=== PATIENT | male | born 1955 | race Caucasian/White ===

== ENCOUNTER 2019-09-30 10:10 | Inpatient (IN) | payer BC ==
[~2019-09-30] VITALS: Ht 177.8 cm; Wt 90.6 kg
[2019-09-30] MEDS ORDERED: HYDROmorphone 1 MG/ML, 1ML INJ ONE ×3 (10:48→13:18)
[2019-09-30] MEDS ORDERED: ONDANSETRON 2MG/ML, 2ML ONE (10:48)
[2019-09-30] MEDS ORDERED: KETOROLAC 30 MG/1 ML ONE (10:48)
[2019-09-30] MEDS: HYDROmorphone 2 MG/ML, 1ML IVPush PRN ×2 (10:53→11:45)
--- NOTE | 2019-09-30 10:54 | NUR ---
meds per jun to ct. as
[2019-09-30] MEDS ORDERED: SODIUM CHLORIDE FLUSH 10ML SYR IVF ONE (11:00)
[2019-09-30] MEDS ORDERED: KETOROLAC 30 MG/1 ML IVPush ONE (11:00)
[2019-09-30] MEDS ORDERED: PLEASE ENTER ALLERGIES MC SCH (11:00)
[2019-09-30] MEDS ORDERED: ONDANSETRON 2MG/ML, 2ML IVPush ONE (11:00)
--- NOTE | 2019-09-30 11:19 | NUR ---
back from ct, pain much relieved, pt calm, cooperative now. vss as charted. awaiting ct. as
[2019-09-30 11:28] LABS: BASOPHILS # (AUTO) 0.06 x10^3/uL (0-0.1); BASOPHILS % (AUTO) 1 % (0-1); EOSINOPHILS # (AUTO) 0.04 x10^3/uL (0-0.4); EOSINOPHILS % (AUTO) 0 % (1-7); LYMPHOCYTES # (AUTO) 1.89 x10^3/uL (1-3.4); LYMPHOCYTES % (AUTO) 16 % (22-44); MD NO; MEAN CORPUSCULAR HEMOGLOBIN 32.6 pg (27.5-34.5); MEAN CORPUSCULAR HGB CONC 33.6 g/dL (33.2-36.2); MEAN CORPUSCULAR VOLUME 96.9 fL (81-97); MEAN PLATELET VOLUME 9.1 fL (7.4-10.4); MONOCYTES # (AUTO) 0.76 x10^3/uL (0.2-0.8); MONOCYTES % (AUTO) 7 % (2-9); NEUTROPHILS # (AUTO) 8.89 x10^3/uL (1.8-6.8); NEUTROPHILS % (AUTO) 76 % (42-75); PLATELET COUNT 268 x10^3/uL (130-400); RED BLOOD COUNT 4.95 x10^6/uL (4.38-5.82); RED CELL DISTRIBUTION WIDTH 13.3 % (9.4-14.8)
[2019-09-30 11:42] LABS: ALBUMIN 3.8 g/dL (3.4-5.0); ANION GAP 9 mmol/L (5-15); CALCIUM 8.6 mg/dL (8.5-10.1); CHLORIDE 109 mmol/L (98-107)
[2019-09-30 11:46] LABS: ALANINE AMINOTRANSFERASE 69 U/L (12-78); ALKALINE PHOSPHATASE 61 U/L (45-117); BILIRUBIN,TOTAL 0.6 mg/dL (0.2-1.0); CREATININE 1.19 mg/dL (0.7-1.3); TOTAL PROTEIN 7.4 g/dL (6.4-8.2)
--- NOTE | 2019-09-30 11:46 | NUR ---
law at bedside, 2nd dose dilaudid, still need ua, plan for bladder scan, pt very vocal about pain. as
--- NOTE | 2019-09-30 12:03 | NUR ---
oob for ua attempt. as
--- NOTE | 2019-09-30 12:24 | NUR ---
bldr scan 69 plan for mini cath law at bedside as
[2019-09-30] MEDS ORDERED: TAMSULOSIN 0.4 MG CAP.ER.24H PO ONE ×2 (12:30→13:30)
[2019-09-30] MEDS ORDERED: OXYcodone/APAP 5/325MG TABLET PO ONE (12:30)
--- NOTE | 2019-09-30 12:31 | NUR ---
LAW IN ROOM TO SPEAK W/ PT RE POC.
[2019-09-30] MEDS ORDERED: TAMSULOSIN 0.4 MG CAP.ER.24H ONE (12:43)
[2019-09-30] MEDS ORDERED: OXYcodone/APAP 5/325MG TABLET ONE (12:43)
[2019-09-30 12:46] LABS: MICROSCOPIC INDICATED
--- NOTE | 2019-09-30 12:53 | NUR ---
PT ABLE TO VOID, UA WLAKED TO LAB.
--- NOTE | 2019-09-30 13:16 | NUR ---
vomited, incr pain. tbadm, agrees. plan more meds. as
[2019-09-30] MEDS ORDERED: PROMETHAZINE 25 MG/ML, 1ML ONE (13:18)
[2019-09-30] MEDS ORDERED: PROMETHAZINE 25 MG/ML, 1ML IM ONE (13:30)
[2019-09-30] MEDS ORDERED: HYDROmorphone 2 MG/ML, 1ML IVPush PRN (13:30)
--- NOTE | 2019-09-30 14:07 | NUR ---
report to opal can. as
[2019-09-30 14:29] VITALS: BP 174/91
[2019-09-30] MEDS ORDERED: ONDANSETRON 2MG/ML, 2ML IVPush PRN ×2 (15:30→18:30)
[2019-09-30] MEDS: SODIUM CHLORIDE 0.9% 1,000 ML IV SCH (15:35)
[2019-09-30] MEDS: morphine SULFATE 10 MG/ML, 1ML IVPush PRN ×2 (15:36→23:35)
[2019-09-30] MEDS ORDERED: DOCUSATE 100 MG CAPSULE PO PRN (18:30)
[2019-09-30] MEDS ORDERED: BISACODYL 10 MG SUPP PR PRN (18:30)
[2019-09-30] MEDS ORDERED: POLYETHYLENE GLYCOL 17 GM PACKET PO PRN (18:30)
[2019-09-30] MEDS ORDERED: ACETAMINOPHEN 325 MG TABLET PO PRN (18:30)
[2019-09-30] MEDS ORDERED: LABETALOL 5MG/ML, 20ML IVPush PRN (18:30)
[2019-09-30] MEDS: KETOROLAC 30 MG/1 ML IVPush SCH (18:42)
[2019-09-30 20:13] VITALS: BP 131/79
[2019-09-30] MEDS ORDERED: LORA10TA75 PO (22:13)
[2019-09-30] MEDS ORDERED: LOSA100T14 PO (22:13)
[2019-10-01] MEDS: KETOROLAC 30 MG/1 ML IVPush SCH ×4 (01:33→19:08)
[2019-10-01 02:30] VITALS: BP 147/85
[2019-10-01] MEDS: SODIUM CHLORIDE 0.9% 1,000 ML IV SCH ×2 (04:56→17:20)
[2019-10-01 06:14] LABS: ANION GAP 6 mmol/L (5-15); CALCIUM 7.4 mg/dL (8.5-10.1); CHLORIDE 110 mmol/L (98-107)
[2019-10-01 06:20] LABS: BASOPHILS # (AUTO) 0.03 x10^3/uL (0-0.1); BASOPHILS % (AUTO) 0 % (0-1); EOSINOPHILS # (AUTO) 0.03 x10^3/uL (0-0.4); EOSINOPHILS % (AUTO) 0 % (1-7); LYMPHOCYTES # (AUTO) 1.27 x10^3/uL (1-3.4); LYMPHOCYTES % (AUTO) 14 % (22-44); MD NO; MEAN CORPUSCULAR HGB CONC 33.9 g/dL (33.2-36.2); MEAN CORPUSCULAR VOLUME 97.4 fL (81-97); MEAN PLATELET VOLUME 8.6 fL (7.4-10.4); MONOCYTES # (AUTO) 0.74 x10^3/uL (0.2-0.8); MONOCYTES % (AUTO) 8 % (2-9); NEUTROPHILS # (AUTO) 7.29 x10^3/uL (1.8-6.8); NEUTROPHILS % (AUTO) 78 % (42-75); PLATELET COUNT 179 x10^3/uL (130-400); RED BLOOD COUNT 4.27 x10^6/uL (4.38-5.82); RED CELL DISTRIBUTION WIDTH 13.4 % (9.4-14.8)
[2019-10-01 06:26] LABS: ALANINE AMINOTRANSFERASE 50 U/L (12-78); ALKALINE PHOSPHATASE 45 U/L (45-117); BILIRUBIN,TOTAL 0.8 mg/dL (0.2-1.0)
[2019-10-01 06:56] VITALS: BP 145/88
[2019-10-01] MEDS ORDERED: ACETAMINOPHEN 325 MG TABLET PO PRN (09:00)
[2019-10-01 13:01] VITALS: BP 148/83
[2019-10-01 14:20] LABS: ANION GAP 7 mmol/L (5-15); CALCIUM 7.6 mg/dL (8.5-10.1); CHLORIDE 106 mmol/L (98-107)
[2019-10-01 14:21] LABS: CREATININE 1.68 mg/dL (0.7-1.3)
[2019-10-01] MEDS: morphine SULFATE 10 MG/ML, 1ML IVPush PRN ×2 (14:26→23:41)
[2019-10-01 19:08] VITALS: BP 183/106
[2019-10-01 22:56] VITALS: BP 155/94
[2019-10-02] MEDS: SODIUM CHLORIDE 0.9% 1,000 ML IV SCH ×2 (01:33→09:26)
[2019-10-02] MEDS: KETOROLAC 30 MG/1 ML IVPush SCH ×3 (01:33→14:25)
[2019-10-02 01:39] VITALS: BP 149/95
[2019-10-02] MEDS: morphine SULFATE 10 MG/ML, 1ML IVPush PRN (06:04)
[2019-10-02 06:07] LABS: ANION GAP 5 mmol/L (5-15); CALCIUM 7.7 mg/dL (8.5-10.1); CHLORIDE 109 mmol/L (98-107)
[2019-10-02 08:05] VITALS: BP 149/95
[2019-10-02] MEDS ORDERED: DOCUSATE 100 MG CAPSULE PO SCH (10:00)
[2019-10-02] MEDS ORDERED: LORATADINE 10 MG TABLET PO SCH (10:00)
[2019-10-02] MEDS ORDERED: POLYETHYLENE GLYCOL 17 GM PACKET PO ONE (10:00)
[2019-10-02] MEDS ORDERED: LOSARTAN 100 MG TAB PO SCH (10:00)
[2019-10-02] MEDS ORDERED: TAMSULOSIN 0.4 MG CAP.ER.24H PO SCH (10:00)
[2019-10-02] MEDS ORDERED: LOSARTAN 50MG TABLET PO SCH (11:30)
[2019-10-02 12:11] VITALS: BP 152/98
[2019-10-02] MEDS ORDERED: TRAM50TA2 PO (13:09)
[2019-10-02] MEDS ORDERED: TAMS-11 PO (13:09)
[2019-10-02] MEDS ORDERED: DOCU100C33 PO (13:09)
== END 2019-10-02 16:17 | disposition home or self-care (01) | DRG 694 ==
LOC: ED 12:45 → EDIP 13:23 → 3N 14:14
PROVIDERS: ADMIT Internal Medicine Infectious Disease; ATTEND Internal Medicine Infectious Disease
DX: N13.2 Hydronephrosis with renal and ureteral calculous obstruction (principal); E87.2 Acidosis; D72.829 Elevated white blood cell count, unspecified; N17.0 Acute kidney failure with tubular necrosis; I10 Essential (primary) hypertension; Z66 Do not resuscitate; Z80.42 Family history of malignant neoplasm of prostate; Z80.8 Family history of malignant neoplasm of other organs or systems; Z85.820 Personal history of malignant melanoma of skin; Z88.6 Allergy status to analgesic agent; Z91.018 Allergy to other foods; R91.1 Solitary pulmonary nodule
CPT/HCPCS: 36415; 74176; 80048; 80053; 81001; 83605; 83690; 83735; 84100; 84443; 85025; 87086; 96374; 96375; 99285; G0378; J1170; J1885; J2405; J2550; J2270; J7030; U0001-CS